=== PATIENT | female | born 1965 | race Caucasian/White ===

== ENCOUNTER 2024-09-05 17:07 | Emergency (ER) | payer MEDICARE, MEDICAID, SELFPAY ==
[2024-09-05 17:21] VITALS: BP 126/82; PULSE 108; RESP 20; TEMP 36.4; O2SAT 98
--- NOTE | 2024-09-05 17:52 | ED_ITS ---
HPI - Eye Problem General Chief complaint: Eye Problems Stated complaint: eye Time Seen by Provider: 09/05/24 17:38 Source: patient Mode of arrival: ambulatory Limitations: no limitations History of Present Illness HPI Narrative: This is a 58-year-old female who presents to the ED for chief complaint of right eye irritation for the past 2 days. Reports that she feels she may have gotten something stuck in her high and was trying to get out. She still feels like there is a scratching/foreign body sensation in the right lateral corner of the eye. Denies pain with eye movements. Denies fevers, chills. Related Data Allergies Allergy/AdvReac Type Severity Reaction Status Date / Time No Known Allergies Allergy Verified 09/05/24 17:21 Review of Systems Review of Systems: All systems as dictated in [facility] Family History Family History (Updated 09/05/11 @ 11:20 by DOCTOR UNKNOWN) Other Cerebrovascular accident Family history of arthritis Family history of malignant neoplasm Hypertension Social History Social History Smoking status: Smoker, status unknown Alcohol intake: never Exam Narrative: GENERAL: Well-appearing, well-nourished, and in no acute distress. HEAD: Normocephalic, atraumatic. EYES: Right eye conjunctiva injected. Mild erythema and edema surrounding the eye. Wood's lamp exam reveals corneal abrasion in the 7 o'clock position. Immediate relief with tetracaine PERRLA and EOMI. No pain with EOMs. ENT: Nares clear, no rhinorrhea or epistaxis. Mucous membranes moist. Oropharynx without tonsillar hypertrophy exudate or other lesions. NECK: Supple. No adenopathy or masses. CHEST: No respiratory distress. Clear to auscultation. No wheezes rales or rhonchi HEART: Regular rate and rhythm. No murmur heard. Normal peripheral pulses. ABDOMEN: Soft, nontender, nondistended, normal active bowel sounds. MSK: Normal range of motion. No edema. SKIN: Warm, dry, no rash. NEURO: Alert and oriented x4. No focal deficits. PSYCH: Normal mood and affect. Course Vital Signs Vital signs: Vital Signs Temperature 97.5 F L 09/05/24 17:21 Pulse Rate 108 H 09/05/24 17:21 Respiratory Rate 20 09/05/24 17:21 Blood Pressure 126/82 09/05/24 17:21 Pulse Oximetry 98 09/05/24 17:21 Oxygen Delivery Room Air 09/05/24 17:21 Temperature 97.5 F L 09/05/24 17:21 Pulse Rate 108 H 09/05/24 17:21 Respiratory Rate 20 09/05/24 17:21 Blood Pressure 126/82 09/05/24 17:21 Pulse Oximetry 98 09/05/24 17:21 Oxygen Delivery Room Air 09/05/24 17:21 MDM - Eye Problem MDM Narrative Medical decision making narrative: 58-year-old female coming in with corneal abrasion. Vitals are normal. Eye exam does show erythema surrounding the eye. She has obvious corneal abrasion to the right eye. No foreign bodies Rx for ofloxacin drops given. Pt will be discharged in stable condition. Return precautions given and supportive measures discussed. Pt is understanding and agreeable with plan for discharge and follow-up with PCP. Discharge Plan Discharge Clinical Impression: Corneal abrasion Patient Disposition: Home, Self-Care Condition: Stable Instructions: Antibiotic Form Additional Instructions: Exam today did show scratch on the cornea. Please take antibiotic drops as prescribed. Follow-up with [facility] this week. If you have any new or worsening symptoms please return to the ER for further evaluation. Patient Language: [place] Islander Prescriptions: New ofloxacin 0.3 % drops See Rx Instructions .ROUTE .COMPLEX Qty: 5 0RF Rx Instructions: put 1-2 drps into affected eye(s) every 2-4 h x 2 days, then 1-2 drps 4 times/day days 3-7 Follow-up/Referrals: PHYSICIAN NOT ON STAFF,NONSTAFF [Primary Care Provider] - Time of Disposition: 18:04
--- OUTSIDE RECORDS SUMMARY | 2024-09-09 10:09 | XMS_ITS | Encounter Summary ---
Author Organization [facility] Address [address] [place] [address] Care Team Providers Care Haulage Boss Name Role Phone Unavailable Primary Care Provider Unavailabl e Reason for Visit * Reason Comments Pain Urinary 1 month Encounter Details Date Type Department Care Team (Late st Contact Info) Description 10/03/2016 5:40 PM CULINARY INSTRUCTOR Office Visit [facility] [address] [place] [id number] Provider, Andrew Exp Nameoki Acute cystitis with hematuria (Primary Dx); Nausea without vomiting Social History Tobacco Use Types Packs/Day Years Used Date Smoking Tobacco: Never Assessed Sex and Gender Information Value Date Recorded Sex Assigned at Not on file Gender Identity Not on file Sexual Orientation Not on file documented as of this encounter Last Filed Vital Signs Vital Sign Reading Time Taken Comments Blood Pressure 136/80 10/03/2016 5:55 PM CULINARY INSTRUCTOR Pulse 99 10/03/2016 5:55 PM CULINARY INSTRUCTOR Temperature 38.6 ??C (101.4 ??F) 10/03/2016 5:[address] Respiratory Rate 18 10/03/2016 5:55 PM CULINARY INSTRUCTOR Oxygen Saturation - - Inhaled Oxygen Concentration - - Weight 68 kg (150 lb) 10/03/2016 5:55 PM CULINARY INSTRUCTOR Height 161.3 cm (5' 3.5 ) 10/03/2016 5:55 PM CULINARY INSTRUCTOR Body Mass Index 26.15 10/03/2016 5:55 PM CULINARY INSTRUCTOR documented in this encounter Patient Instructions * Patient Instructions* Sudha Huber APRN-DOCTOR OF PHARMACY - 10/03/2016 6:11 PM CULINARY INSTRUCTOR Images from the original note were not included. Increase water intake, decrease caffeine. May drink cranberry juice to help with symptoms. May use OTC Azo for bladder spasms as needed (this may change the color of your urine). Tylenol or motrin as needed Proper hygiene No bubble baths If no improvement in 48-72 hours follow up with PCP or return to clinic Urinary Tract Infection in Women WHAT YOU NEED TO KNOW: A urinary tract infection (UTI) is caused by bacteria that get inside your urinary tract. Your urinary tract includes your kidneys, ureters, bladder, and urethra. Urine is made in your kidneys, and it flows from the ureters to the bladder. Urine leaves the bladder through the urethra. A UTI is morecommon in your lower urinary tract, which includes your bladder and urethra. DISCHARGE INSTRUCTIONS: Seek care immediately if: ?? You are urinating very little or not at all. ?? You are vomiting. ?? You have a high fever with shaking chills. ?? You have side or back pain that gets worse. Contact your healthcare provider if: ?? You have a fever. ?? You have white or yellow discharge from your vagina. ?? You do not feel better after 2 days of taking antibiotics. ?? You have questions or concerns about your condition or care. Medicines: ?? Medicines help treat the bacterial infection or decrease pain and burning when you urinate. You may also need medicines to decrease the urge to urinate often. ?? Take your medicine as directed. Call your healthcare provider if you think your medicine is not helping or if you have side effects. Tell him if you are allergic to any medicine. Keep a list of the medicines, vitamins, and herbs you take. Include the amounts, and when and why you take them. Bring the list or the pill bottles to follow-up visits. Carry your medicine list with you in case of an emergency. Follow up with your healthcare provider as directed: Write down your questions so you remember to ask them during your visits. Self-care: ?? Urinate when you feel the urge. Do not hold your urine. Urinate as soon as you feel you have to. ?? Drink liquids as directed. Ask how much liquid to drink each day and which liquids are best for you. You may need to drink more liquids than usual to help flush out the bacteria. Do not drink alcohol, caffeine, and citrus juices. These can irritate your bladder and increase your symptoms. ?? Apply heat on your abdomen for 20 to 30 minutes every 2 hours for as many days as directed. Heathelps decrease discomfort and pressure in your bladder. ?? 2016 [employer]. Information is for End User's use only and may not be sold, redistributed or otherwise used for commercial purposes. All illustrations and images included in CareNotes?? are the copyrighted property of [employer]. or [employer] The above information is an dietary aide cook only. It is not intended as medical advice for individual conditions or treatments. Talk to your doctor, nurse or pharmacist before following any medical regimen to see if it is safe and effective for you. NARY INSTRUCTOR documented in this encounter Progress Notes * Sudha Huber APRN-CNP - 10/03/2016 5:56 PM CST [facility] Chief Complaint Patient presents with ??? Pain Urinary x 1 week SUBJECTIVE: General The history is provided by the patient. This is a new problem. The current episode started more than 1 week ago. The problem occurs constantly. The problem has been gradually worsening. Body Location: urinating.Pertinent negatives include no shortness of breath. Treatments tried: cranberry pill, cystic The treatment provided no relief. Patient has been dealing with urinary symptoms for 1 month saw PCP 09/03/16 was treated for UTI with Keflex x 5 days no help Past Medical History Diagnosis Date ??? Breast cancer 08/2016 right (no treatement as of 10/03/16) No current outpatient prescriptions on file prior to visit. No current facility-administered medications on file prior to visit. No past surgical history on file. History Social History ??? Marital status: Single Spouse name: N/A ??? Number of children: N/A ??? Years of education: N/A Occupational History ??? Not on file. Social History Main Topics ??? Smoking status: Not on file ??? Smokeless tobacco: Not on file ??? Alcohol use: Not on file ??? Drug use: Not on file ??? Sexual activity: Not on file Other Topics Concern ??? Not on file Social History Narrative ??? No narrative on file No family history on file. No current outpatient prescriptions on file. No current facility-administered medications for this visit. Allergies not on file REVIEW OF SYSTEMS: Review of Systems Constitutional: Positive for chills and fever. Aches Respiratory: Negative for cough and shortness of breath. Gastrointestinal: Positive for nausea. Genitourinary: Positive for dysuria, flank pain, frequency, hematuria and urgency. Suprapubic pressure OBJECTIVE: General appearance: alert, well appearing, and in no distress. BP 136/80 Pulse 99 Temp 101.4 ??F (Oral) Resp 18 Wt 68 kg (150 lb) BMI 26.15 kg/m2 Physical Exam Constitutional: She is oriented to person, place, and time and well-developed, well-nourished, and in no distress. HENT: Head: Normocephalic and atraumatic. Cardiovascular: Normal rate and regular rhythm. Pulmonary/Chest: Effort normal and breath sounds normal. Abdominal: Soft. Bowel sounds are normal. Genitourinary: Genitourinary Comments: Suprapubic tenderness, left flank tendnerness Neurological: She is alert and oriented to person, place, and time. Vitals reviewed. ASSESSMENT: No results found for this visit on 10/03/16. No diagnosis found. PLAN: Increase water intake, decrease caffeine. May drink cranberry juice to help with symptoms. May use OTC Azo for bladder spasms as needed (this may change the color of your urine). Tylenol or motrin as needed Proper hygiene No bubble baths If no improvement in 48-72 hours follow up with PCP or return to clinic NARY INSTRUCTOR documented in this encounter Plan of Treatment Not on file documented as of this encounter Procedures Procedure Name Priority Date/Time Associated Diagnosis Comments URINALYSIS AUTO - POINT OF CARE (AMB) STL Routine 10/03/2016 6:09 PM CULINARY INSTRUCTOR Acute cystitis with hematuria CULTURE URINE Routine 10/03/2016 6:08 PM CULINARY INSTRUCTOR Acute cystitis with hematuria documented in this encounter Results * (ABNORMAL) URINALYSIS AUTO - POINT OF CARE (AMB) STL (10/03/2016 6:09 PM CULINARY INSTRUCTOR) Clarity UA POCT clear Color UA POCT yellow Leukocyte UA 125 Negative Nitrite UA POCT neg Negative Urobilinogen UA 0.2 0.1 - 1.0 Protein UA POCT 30 Negative pH UA 6.0 5.0 - 8.0 pH units Blood UA 3+ Negative Specific [place] UA POCT 1.020 1.002 - 1.030 Ketone UA neg Negative Bilirubin UA POCT neg Negative Glucose UA neg Negative Expiration Date 03/23/2018 Lot # [id number] QC Verified Yes Yes URINE / Unknown 10/03/2016 6 :09 PM CULINARY INSTRUCTOR Sudha Fan Huber FLOOR CLEANER-DOCTOR OF PHARMACY LAB - POINT O F CARE ORDERABLES * (ABNORMAL) CULTURE URINE (10/03/2016 6:08 PM CULINARY INSTRUCTOR) [facility] [address] Culture (A) QUEST Comment: ??CULTURE, URINE, ROUTINE ?MICRO NUMBER: ?[id number] ??TEST STATUS: ? FINAL ??SPECIMEN SOURCE: ?? URINE, CLEAN CATCH ??SPECIMEN QUALITY: ??ADEQUATE ??RESULT: ?Greater than 100,000 CFU/mL of Escherichia coli ?E.coli ?INT ?? HAJA ?? AMOX/CLAVULANATE ? S ? <=2 ?? AMPICILLIN ? S ? <=2 ?? AMP/SULBACTAM ?S ? <=2 ?? CEFAZOLIN ?NR ?<=4 1 ?? CEFEPIME ? S ? <=1 ?? CEFTRIAXONE ?S ? <=1 ?? CIPROFLOXACIN ?S ? <=0.25 ?? ERTAPENEM ?S ? <=0.5 ?? GENTAMICIN ? S ? <=1 ?? IMIPENEM ? S ? <=0.25 ?? LEVOFLOXACIN ? S ? <=0.12 ?? NITROFURANTOIN ? S ? <=16 ?? PIP/TAZOBACTAM ? S ? <=4 ?? TOBRAMYCIN ? S ? <=1 ?? TRIMETHOPRIM/SULFA ? S ? <=20 S=Susceptible ??I=Intermediate ??R=Resistant ??* = Not Tested NR = Not Reported ??NN = See Therapy Comments THERAPY COMMENTS ?Note 1: ?ORAL therapy: A cefazolin HAJA of < 32 predicts ?susceptibility to the oral agents cefaclor, ?cefdinir, cefpodoxime, cefprozil, cefuroxime, ?cephalexin, and loracarbef when used for therapy ?of uncomplicated UTIs due to E. coli, ?K. pneumoniae, and P. mirabilis. ?PARENTERAL therapy: A cefazolin HAJA of > 8 ?indicates resistance to parenteral cefazolin. ?An alternate test method must be performed to ?to confirm susceptibility to parenteral cefazolin. Test Performed at: [facility] [address] [place], [place] ??[id number] NINI MELENDREZ MD Urine URINE SPECIMEN OBTAINED BY CLEAN CATCH PROCEDURE / Unknown 10/03/2016 6:08 PM CULINARY INSTRUCTOR 10/04/2016 12:18 AM CULINARY INSTRUCTOR Sudha Huber APRN-DOCTOR OF PHARMACY LAB - MICROBI OLOGY ORDERABLES Performing Organization Address City/State/[facility] Co de Phone Number [facility] [address] [place] [address] documented in this encounter Visit Diagnoses Diagnosis Acute cystitis with hematuria- Primary Acute cystitis Nausea without vomiting documented in this encounter
--- OUTSIDE RECORDS SUMMARY | 2024-09-09 10:09 | XMS_ITS | Patient Health Summary ---
Author Organization [facility] [employer] Address [address] [place] [address] Care Team Providers Care Assistant Manager Retail Name Role Phone Unavailable Primary Care Provider Unavailabl e Note from [facility],non-owned Affiliates and Associated Physician Practices is amultiple site organization consisting of ambulatory clinics and hospital sitesin [place], [place], [place] and [place]. This disclosure is being madepursuant to the Care Everywhere program and may not contain all information available regarding this patient. Last updated 18.[facility] [employer] Allergies No known active allergies Medications * Be aware that medications may not be up to date on this document. Alwaysverify current medications with the patient. * Ondansetron HCl (ZOFRAN PO) * Dicyclomine HCl (BENTYL PO) * SUMAtriptan Succinate (IMITREX PO) * OMEPRAZOLE PO * Topiramate (TOPAMAX PO) * DiazePAM (VALIUM PO) * Alendronate Sodium (FOSAMAX PO) * ondansetron (ZOFRAN) 4 MG tablet(Started 10/03/2016) Take 1 Tab by mouth every 6 hours as needed for Nausea/Vomiting Social History Tobacco Use Types Packs/Day Years Used Date Smoking Tobacco: Never Assessed Sex and Gender Information Value Date Recorded Sex Assigned at Not on file Gender Identity Not on file Sexual Orientation Not on file Last Filed Vital Signs Vital Sign Reading Time Taken Comments Blood Pressure 136/80 10/03/2016 5:55 PM STOCK RANCH SUPERVISOR Pulse 99 10/03/2016 5:55 PM STOCK RANCH SUPERVISOR Temperature 38.6 ??C (101.4 ??F) 10/03/2016 5:[address] Respiratory Rate 18 10/03/2016 5:55 PM STOCK RANCH SUPERVISOR Oxygen Saturation - - Inhaled Oxygen Concentration - - Weight 68 kg (150 lb) 10/03/2016 5:55 PM STOCK RANCH SUPERVISOR Height 161.3 cm (5' 3.5 ) 10/03/2016 5:55 PM STOCK RANCH SUPERVISOR Body Mass Index 26.15 10/03/2016 5:55 PM STOCK RANCH SUPERVISOR Procedures * URINALYSIS AUTO - POINT OF CARE (AMB) STL(Performed 10/03/2016) Performed for Acute cystitis with hematuria * CULTURE URINE(Performed 10/03/2016) Performed for Acute cystitis with hematuria Results * (ABNORMAL) URINALYSIS AUTO - POINT OF CARE (AMB) STL (10/03/2016 6:09 PM STOCK RANCH SUPERVISOR) Clarity UA POCT clear Color UA POCT yellow Leukocyte UA 125 Negative Nitrite UA POCT neg Negative Urobilinogen UA 0.2 0.1 - 1.0 Protein UA POCT 30 Negative pH UA 6.0 5.0 - 8.0 pH units Blood UA 3+ Negative Specific [place] UA POCT 1.020 1.002 - 1.030 Ketone UA neg Negative Bilirubin UA POCT neg Negative Glucose UA neg Negative Expiration Date 03/23/2018 Lot # [id number] QC Verified Yes Yes URINE / Unknown 10/03/2016 6 :09 PM STOCK RANCH SUPERVISOR Sudha Huber APRN-BAKERY DEMONSTRATOR LAB - POINT O F CARE ORDERABLES * (ABNORMAL) CULTURE URINE (10/03/2016 6:08 PM STOCK RANCH SUPERVISOR) Culture (A) [facility] Comment: ??CULTURE, URINE, ROUTINE ?MICRO NUMBER: ?[id number] ??TEST STATUS: ? FINAL ??SPECIMEN SOURCE: ?? [...] susceptibility to parenteral cefazolin. Test Performed at: [facility] [employer] ??[id number] NINI MELENDREZ MD Urine URINE SPECIMEN OBTAINED BY CLEAN CATCH PROCEDURE / Unknown 10/03/2016 6:08 PM STOCK RANCH SUPERVISOR 10/04/2016 12:18 AM STOCK RANCH SUPERVISOR Sudha Huber APRN-BAKERY DEMONSTRATOR LAB - MICROBI OLOGY ORDERABLES [facility] [address] [place] [id number]
--- OUTSIDE RECORDS SUMMARY | 2024-09-09 10:09 | XMS_ITS | Referral Summary ---
Author Organization [facility] [employer] Address [address] [place] [address] Care Team Providers Care Economics Lecturer Name Role Phone Unavailable Primary Care Provider Unavailabl e Source Comments [facility] [employer],non-owned Affiliates and Associated Physician Practices is amultiple site organization consisting of ambulatory clinics and hospital sitesin [place], [place], [place] and [place]. This disclosure is being madepursuant to the Care Everywhere program and may not contain all information available regarding this patient. Last updated 18.[facility] Allergies No known active allergies Medications * Be aware that medications may not be up to date on this document. Alwaysverify current medications with the patient. Medication Sig Dispensed Refills Start Date End Date Status Ondansetron HCl (ZOFRAN PO) Active Dicyclomine HCl (BENTYL PO) Active SUMAtriptan Succinate (IMITREX PO) Active OMEPRAZOLE PO Active Topiramate (TOPAMAX PO) Active DiazePAM (VALIUM PO) Acti ve Alendronate Sodium (FOSAMAX PO) Active ondansetron (ZOFRAN) 4 MG tabletIndications:Naus ea without vomiting Take 1 Tab by mouth every 6 hours as needed for Nausea/Vomiting 30 Tab 10/03/2016 Active Social History Tobacco Use Types Packs/Day Years Used Date Smoking Tobacco: Never Assessed Sex and Gender Information Value Date Recorded Sex Assigned at Not on file Gender Identity Not on file Sexual Orientation Not on file Last Filed Vital Signs Vital Sign Reading Time Taken Comments Blood Pressure 136/80 10/03/2016 5:55 PM NON DESTRUCTIVE TESTING TECHNICIAN Pulse 99 10/03/2016 5:55 PM NON DESTRUCTIVE TESTING TECHNICIAN Temperature 38.6 ??C (101.4 ??F) 10/03/2016 5:[address] Respiratory Rate 18 10/03/2016 5:55 PM NON DESTRUCTIVE TESTING TECHNICIAN Oxygen Saturation - - Inhaled Oxygen Concentration - - Weight 68 kg (150 lb) 10/03/2016 5:55 PM NON DESTRUCTIVE TESTING TECHNICIAN Height 161.3 cm (5' 3.5 ) 10/03/2016 5:55 PM NON DESTRUCTIVE TESTING TECHNICIAN Body Mass Index 26.15 10/03/2016 5:55 PM NON DESTRUCTIVE TESTING TECHNICIAN Plan of Treatment Not on file
--- OUTSIDE RECORDS SUMMARY | 2024-09-09 10:09 | XMS_ITS | Continuity of Care Document ---
Author Organization [facility] Address [address] [place] [address] Phone Care Team Providers Care Expanded Duty Dental Assistant Name Role Phone Fuentes OD, Aristeo Unavailable Unavailable Advance Directives Directive Yes / No Effective Date File Name No Information Encounters Encounter Description Practice Location Reason(s) For Visit Diagnoses Date Provider Providers Copied on Encounter [facility], [address], [place], [place], [id number], [place] tel:[phone] [facility] [place] No Information Nov-0 4-200 5 Fuentes OD Aristeo. [address] [place] , [address], [place], [address], [place]. tel:[phone] Family History Family Member Type Diagnosis Age At Onset No Information Payers Payer name Insurance type Covered constitution party ID Authoriza tion(s) Medicare [facility] [id number] Medicaid [facility] [id number] Social History Type Description Quantity Date Captured Comments Sex Female Smoking Status No Information Chief Complaint And Reason For Visit No Information Reason For Referral Reason For Referral No Information History Of Present Illness Encounter Date Complaint History Of Prese nt Illness No Information Functional Status Date Functional Assessmen t No Information Instructions Date Instruction Additional Infor mation No Information Assessments Type Assessment Date No Information Patient Care Teams Name Effective Dates (start - stop) Status Members No Information
--- OUTSIDE RECORDS SUMMARY | 2024-09-09 10:09 | XMS_ITS | CONTINUITY OF CARE DOCUMENT ---
Author Name claudia taylor Address Unknown Organization [facility] Address [address] [place] [address] Phone [phone] Care Team Providers Care Supervisor Parking Lot Name Role Phone Kavin Schumacher MD Unavailable [phone] Kavin Schumacher MD Unavailable [phone] INSURANCE PROVIDERS Payer name Policy type / Coverage type [place] red green party ID [employer] AND FAMILY SERVICES Medicaid 1 [id number] [id number]
--- OUTSIDE RECORDS SUMMARY | 2024-09-09 10:09 | XMS_ITS | Clinical Summary ---
Author Organization [facility] Address [address] [place] [address]. [place], [place] [id number] [place] [address] Care Team Providers Care X Ray Tech Name Role Phone Unavailable Primary Care Provider Unavailabl e Social History Tobacco Use Types Packs/Day Years Used Date Smoking Tobacco: Never Assessed Comments Unknown Sex and Gender Information Value Date Recorded Sex Assigned at Not on file Legal Sex Female 7:31 PM CDT Gender Identity Not on file Sexual Orientation Not on file Plan of Treatment Health Maintenance Due Date Last Done Comments Cervical Cancer Screening Pa p Smear (Age 30 to 64) Every 3 Years 1966 Colorectal Cancer Screening Colonoscopy (10 Years) 1966 Annual Physical 1969 Hepatitis C 1984 DTaP, Tdap and Td Vaccines ( 1 - Tdap) 1985 Hepatitis B Vaccines (1 of 3 - 19+ 3-dose series) 1985 Cervical Cancer Screening Pa p with HPV Testing (Age 30 to 64) Every 5 Years 1996 Cervical Cancer Screening with HPV 1996 Mammogram Screening 2006 Zoster Vaccines (1 of 2) 2016 COVID-19 Vaccine (2023-2 5 season) 2024 Influenza Adult (#1) 2024 Meningococcal Vaccine Aged Out No lizandro yanira eligible based on patient's age to complete this topic Pneumococcal Vaccine: Pediat rics (0 to 5 Years) and At-Risk Patients (6 to 64 Years) Aged Out No longer eligible b ased on patient's age to complete this topic RSV Immunizations Under 20 Months Aged Out No longer eligible based on patient's age to complete this topic
--- OUTSIDE RECORDS SUMMARY | 2024-09-09 10:09 | XMS_ITS | Clinical Summary ---
Author Organization [facility] Address [address] [place] [address] Care Team Providers Care Sand Mixer Machine Name Role Phone Unavailable Primary Care Provider Unavailabl e Source Comments [facility],non-owned Affiliates and Associated Physician Practices is amultiple site organization consisting of ambulatory clinics and hospital sitesin [place], [place], [place] and [place]. This disclosure is being madepursuant to the Care Everywhere program and may not contain all information available regarding this patient. Last updated 18.[facility] Allergies No known active allergies Medications * [...] Comments Blood Pressure 136/80 10/03/2016 5:55 PM FIRE INSPECTOR Pulse 99 10/03/2016 5:55 PM FIRE INSPECTOR Temperature 38.6 ??C (101.4 ??F) 10/03/2016 5:[address] Respiratory Rate 18 10/03/2016 5:55 PM FIRE INSPECTOR Oxygen Saturation - - Inhaled Oxygen Concentration - - Weight 68 kg (150 lb) 10/03/2016 5:55 PM FIRE INSPECTOR Height 161.3 cm (5' 3.5 ) 10/03/2016 5:55 PM FIRE INSPECTOR Body Mass Index 26.15 10/03/2016 5:55 PM FIRE INSPECTOR Plan of Treatment Health Maintenance Due Date Last Done Comments COLOGUARD (AGES 45-75) - COL ON CA SCREENING 1966 COLON MONITORING 1966 COLONOSCOPY - COLON CA SCREENING 1966 CT COLONOGRAPHY - COLON CA SCREENING 1966 Colorectal Cancer Screening 1966 FIT - COLON CA SCREENING 1966 FLEX SIG - COLON CA SCREENING 1966 LIPID TESTING 1966 MAMMOGRAM 1966 MEDICARE AWV ? 12 MONTHS 1966 PAP SMEAR 1966 HIV SCREENING 1981 HEPATITIS C SCREENING 09/16/1984 DTAP/TDAP/TD VACCINES (1 - Tdap) 1985 HEPATITIS B VACCINE (1 of 3 - 19+ 3-dose series) 1985 ZOSTER VACCINE (1 of 2) 2016 DEPRESSION SCREENING 09/24/2023 COVID-19 VACCINE (1 - 2023-2 5 season) 2024 INFLUENZA VACCINE (#1) 2024 HIB VACCINE Aged Out No longer eligi ble based on patient's age to complete this topic HPV VACCINE Aged Out No longer eligi ble based on patient's age to complete this topic MENINGOCOCCAL VACCINE Aged Out No lizandro yanira eligible based on patient's age to complete this topic PNEUMOCOCCAL VACCINE Aged Out No long er eligible based on patient's age to complete this topic
--- OUTSIDE RECORDS SUMMARY | 2024-09-09 10:09 | XMS_ITS | Continuity of Care Document ---
Author Organization [facility] Address [address] [place] [address] [place] [address] Phone Care Team Providers Care Donor Floor Technician Name Role Phone Maximo Andre MD Unavailable Unavailable Allergies, Adverse Reactions, Alerts Substance Reaction Status Criticality No Known Allergies Active No Inform ation Medications Medication Instructions Dosage Effective Dates (start - stop) Status Comments omeprazole 20 mg capsule,delayed release take 1 capsule (20MG) by oral route every day before a meal - Active Topamax 50 mg tablet take 1 tablet by oral route 2 times every day 50 MG - Active Zantac 150 mg tablet take 1 tablet (150MG) by oral route 2 times every day - Active Ritalin 5 mg tablet take 1 tablet by oral route 2 times every day 5 MG - Active Valium 10 mg tablet take 1 tablet (10MG) by oral route 3 times every day 10 MG - Active avoid driving or operate machines Penasco 10 mg-325 mg tablet take 1 by Oral route 4 times every day as needed 1 - Active avoid driving or operate amchines Vistaril 50 mg capsule take 1 capsule by oral route every bedtime 50 MG - Active alendronate 35 mg tablet take 1 tablet (35MG) by oral route every week in the morning, at least 30 min before first food, beverage, or medication of day 35 MG - Active Paxil 10 mg tablet take 1 tablet by oral route every day 10 MG - Active Procedures Procedure Date OFFICE/OUTPATIENT VISIT, EST OFFICE/OUTPATIENT VISIT, EST OFFICE/OUTPATIENT VISIT, EST PREV VISIT, EST, AGE 40-64 OFFICE/OUTPATIENT VISIT, EST OFFICE/OUTPATIENT VISIT, EST OFFICE/OUTPATIENT VISIT, EST OFFICE/OUTPATIENT VISIT, EST OFFICE/OUTPATIENT VISIT, EST OFFICE/OUTPATIENT VISIT, EST OFFICE/OUTPATIENT VISIT, EST OFFICE/OUTPATIENT VISIT, EST OFFICE/OUTPATIENT VISIT, EST OFFICE/OUTPATIENT VISIT, EST OFFICE/OUTPATIENT VISIT, EST OFFICE/OUTPATIENT VISIT, EST OFFICE/OUTPATIENT VISIT, EST OFFICE/OUTPATIENT VISIT, EST OFFICE/OUTPATIENT VISIT, EST OFFICE/OUTPATIENT VISIT, EST OFFICE/OUTPATIENT VISIT, EST OFFICE/OUTPATIENT VISIT, EST OFFICE/OUTPATIENT VISIT, EST OFFICE/OUTPATIENT VISIT, EST OFFICE/OUTPATIENT VISIT, EST OFFICE/OUTPATIENT VISIT, EST OFFICE/OUTPATIENT VISIT, EST OFFICE/OUTPATIENT VISIT, EST OFFICE/OUTPATIENT VISIT, EST OFFICE/OUTPATIENT VISIT, EST OFFICE/OUTPATIENT VISIT, EST OFFICE/OUTPATIENT VISIT, EST OFFICE/OUTPATIENT VISIT, EST OFFICE/OUTPATIENT VISIT, EST OFFICE/OUTPATIENT VISIT, EST OFFICE/OUTPATIENT VISIT, EST OFFICE/OUTPATIENT VISIT, EST OFFICE/OUTPATIENT VISIT, EST OFFICE/OUTPATIENT VISIT, EST OFFICE/OUTPATIENT VISIT, EST OFFICE/OUTPATIENT VISIT, EST OFFICE/OUTPATIENT VISIT, EST OFFICE/OUTPATIENT VISIT, EST OFFICE/OUTPATIENT VISIT, EST OFFICE/OUTPATIENT VISIT, EST OFFICE/OUTPATIENT VISIT, EST Advance Directives Directive Yes / No Effective Date File Name No Information Encounters Encounter Description Practice Location Reason(s) For Visit Diagnoses Date Provider Providers Copied on Encounter OFFICE/OUTPA TIENT VISIT, [facility], [address], [place], [address], tel:[phone] [facility] chornic pain (chief complaint)anxi ety1 (chief complaint)GERD 1 (chief complaint)knee pain1 (chief complaint) Chronic pain syndromePain in right kneeGeneralized Anxiety DisorderGERD without esophagitis 6 Thai Marsh. [address], [address], [place], [address]. tel:[phone] Referring Provider: Lyle Lmab [facility] [address], [place], [address]. tel:[phone] OFFICE/OUTPA TIENT VISIT, [facility], [address], [place], [address], [place] tel:[phone] [facility] chronic pain (chief complaint)oste openia1 (chief complaint)indio sst nodule (chief complaint)knee pain (chief complaint)knee pain1 (chief complaint) Oth disrd of bone density and structure, multiple sitesPain in right kneeInconclusiv e mammogramChroni c pain syndrome 0 6 Thai Marsh. [address], [address], [place], [address]. tel:[phone] Referring Provider: Lyle Lamb [facility] [address], [place], [address]. tel:[phone] OFFICE/OUTPA TIENT VISIT, [facility], [address], [place], [address], [place] tel:[phone] [facility] chronic pain (chief complaint)anxi ety1 (chief complaint)ADD (chief complaint)naus ea1 (chief complaint) Chronic pain syndromeGeneral ized Anxiety DisorderNauseaA ttention deficit 6 Thai Marsh. [address], [address], [place], [address]. tel:[phone] Referring Provider: Lyle Lamb [address], [place], [address]. tel:[phone] PREV VISIT, EST, AGE 40-64 [facility], [address], [place], [address], tel:[phone] [facility] PHysical (chief complaint) Encounter for general adult medical exam w abnormal findingsGERD w/ esophagitisChro elizabeth pain syndromeHeadach e May- 6 Thai Marsh. [address], [address], [place], [address]. [phone] Referring Provider: Lyle Lamb [facility] A, [place], [address]. tel:[phone] OFFICE/OUTPA TIENT VISIT, [facility], [address], [place], [address], [place] tel:[phone] [facility] insomnia1 (chief complaint)anxi ety1 (chief complaint)head ache1 (chief complaint)chronometer tester elizabeth pain1 (chief complaint)oste openia1 (chief complaint) CervicalgiaOste oporosisInsomni a, unspecifiedChro elizabeth migraine w/o aura, not intractable, w/o status migrainosus January-0 6 Thai Marsh. [address], [facility] [address], [place], [facility]. [phone] Referring Provider: Lyle Lamb [address], [place], [address]. tel:[phone] OFFICE/OUTPA TIENT VISIT, [facility], [address], [place], [address], [place] tel:[phone] [facility] abd pain (chief complaint)anxi ety1 (chief complaint)chronometer tester elizabeth pain (chief complaint)sick (chief complaint) GastroparesisAc curly upper respiratory infection, unspecifiedChro elizabeth pain syndrome Nov- 6 Thai Marsh. [address], [address], [place], [address]. [phone] Referring Provider: Lyle Lamb [address], [place], [address]. tel:[phone] OFFICE/OUTPA TIENT VISIT, [facility], [address], [place], [address], tel:[phone] [facility] anxiety1 (chief complaint)ADD (chief complaint)sinu s (chief complaint)abd pain1 (chief complaint)oste openia (chief complaint) Allergic rhinitisAnxioly tic dependenceAbdom inal painOsteoporosi s 6 Thai Marsh. [address], [address], [place], [facility]. tel:[phone] Referring Provider: Lyle Lamb [address], [place], [facility]. tel:[phone] OFFICE/OUTPA TIENT VISIT, [facility], [address], [place], [facility], tel:[phone] [facility] abd pain1 (chief complaint)inso mnia1 (chief complaint)Anxi ety1 (chief complaint)ADD1 (chief complaint)head ache1 (chief complaint) Abdominal painInsomnia, unspecifiedChro elizabeth migraine w/o aura, not intractable, w/o status migrainosus 6 Thai Marsh. [address], [address], [place], [facility]. tel:[phone] Referring Provider: Lyle Lamb [address], [place], [address]. tel:[phone] OFFICE/OUTPA TIENT VISIT, [facility], [address], [place], [address], tel:[phone] [facility] anxiety1 (chief complaint)ADD1 (chief complaint)Abd pain1 (chief complaint) Generalized abdominal painIBSGERD without esophagitis 5 Thai Marsh. [address], [address], [place], [facility]. tel:[phone] Referring Provider: Lyle Lamb [address], [place], [address]. tel:[phone] OFFICE/OUTPA TIENT VISIT, [facility], [address], [place], [address], tel:[phone] [facility] GERD1 (chief complaint)Anxi ety1 (chief complaint)head ache1 (chief complaint) Gastroparalysis Chronic migraine w/o aura, not intractable, w/o status migrainosusAbdo akosua painCandidal esophagitis 5 Thai Marsh. [address], [address], [place], [facility]. tel:[phone] Referring Provider: Maximo Andre, [address], [place], [facility]. tel:[phone] OFFICE/OUTPA TIENT VISIT, [facility], [address], [place], [facility], [place] tel:[phone] [facility] ADD (chief complaint)anxi ety (chief complaint)GERD (chief complaint) Esophageal refluxUnspecifi ed essential hypertensionIns omnia, unspecifiedOthe r disorders of bone and cartilage 5 Thai Marsh. [address], [address], [place], [facility]. tel:[phone] Referring Provider: Maximo Andre, [address], [place], [facility]. tel:[phone] OFFICE/OUTPA TIENT VISIT, [facility], [address], [place], [address], [place] tel:[phone] [facility] HTN (chief complaint)inso mnia (chief complaint)ADD (chief complaint)slee p apnea (chief complaint) InsomniaUnspeci fied sleep apneaUnspecifie d essential hypertension 5 Thai Marsh. [address], [address], [place], [address]. tel:[phone] Referring Provider: Maximo Andre, [address], [place], [facility]. tel:[phone] OFFICE/OUTPA TIENT VISIT, [facility], [address], [place], [address], [place] tel:[phone] [facility] Depression (chief complaint)naue a (chief complaint)ADD (chief complaint) Nausea and vomitingEsophag eal refluxHeadacheS creening mammogram 5 Thai Marsh. [address] [facility] [address], [place], [facility]. tel:[phone] Referring Provider: Lyle Lamb [facility] [address], [place], [facility]. tel:[phone] OFFICE/OUTPA TIENT VISIT, [facility], [address] [place], [facility], tel:[phone] [facility] anxiety (chief complaint)GERD (chief complaint)ches t pain (chief complaint)slee p apnea (chief complaint) Unspecified essential hypertensionUns pecified sleep apneaGERD - Gastro-esophage al reflux diseaseOther chronic pain 5 Thai Hassan [address], [place], [facility]. tel:[phone] [facility]: [facility] [place], [facility]. tel:[phone] OFFICE/OUTPA TIENT VISIT, [facility], [address] [place], [facility], tel:[phone] [facility] chest pain (chief complaint)head ache (chief complaint)inso mnia (chief complaint)anxi ety (chief complaint)seas onal allergy (chief complaint) Chest Pain, UnspecifiedHead acheAllergic rhinitis, cause unspecifiedInso mnia, Other 5 Thai Marsh. [address], [address], [place], [facility]. tel:[phone] Referring Provider: Lyle Lamb [address] [facility] [address], [place], [facility]. tel:[phone] OFFICE/OUTPA TIENT VISIT, [facility], [address] [place], [address], [place] tel:[phone] [facility] chest pain (chief complaint)head ache (chief complaint)inso mnia (chief complaint)anxi ety (chief complaint) Chest Pain, UnspecifiedHead acheInsomnia, OtherDisorder of bone and cartilage, unspecified Dec-0 5 Thai Marsh. [address], [place], [address]. tel:[phone] Referring Provider: yLle Lamb [facility] [address], [place], [facility]. tel:[phone] OFFICE/OUTPA TIENT VISIT, [facility], [address], [place], [address], tel:[phone] [facility] sleep apnea (chief complaint)anxi ety (chief complaint)ches t pain (chief complaint)inso mnia (chief complaint) Chest Pain, UnspecifiedSlee p ApneaHeadacheIn somnia, Other Nov- 5 Thai Hassan [address], [place], [address]. tel:[phone] Referring Provider: Lyle Lamb [facility] [address], [place], [facility]. tel:[phone] OFFICE/OUTPA TIENT VISIT, [facility], [address], [place], [address], tel:[phone] [facility] sinus (chief complaint)anxi ety (chief complaint)slee p apnea (chief complaint) Other acute sinusitisSleep ApneaSedative, hypnotic or anxiolytic dependence, unspecifiedPers onal history of noncompliance with medical treatment, presenting hazards to health 5 Thai Hassan [address] [facility] [address], [place], [facility]. tel:[phone] Referring Provider: Lyle Lamb [facility] A, [place], [address]. tel:[phone] OFFICE/OUTPA TIENT VISIT, [facility], [address] [place], [address], [place] tel:[phone] [facility] insomnia (chief complaint)head ache (chief complaint)anxi ety (chief complaint)GERD (chief complaint) Insomnia, OtherHeadacheGE RDDepression 4 Thai Hassan [address], [address], [place], [address]. tel:[phone] Referring Provider: Lyle Lamb [address], [place], [facility]. tel:[phone] OFFICE/OUTPA TIENT VISIT, [facility], [address], [place], [facility], tel:[phone] [facility] headache (chief complaint)slee p apnea (chief complaint)anxi ety (chief complaint)inso mnia (chief complaint) HeadacheSleep ApneaDisorder of bone and cartilage, unspecifiedInso mnia, Other 4 Thai Marsh. [address], [address], [place], [facility]. [phone] Referring Provider: Lyle Lamb [address], [place], [facility]. tel:[phone] OFFICE/OUTPA TIENT VISIT, [facility], [address], [place], [facility], tel:[phone] [facility] headache (chief complaint)anxi ety (chief complaint)naus ea (chief complaint) HeadacheNausea aloneSleep Apnea 4 Thai Marsh. [address], [address], [place], [facility]. tel:[phone] Referring Provider: Lyle Lamb [address], [place], [facility]. tel:[phone] OFFICE/OUTPA TIENT VISIT, [facility], [address], [place], [facility], tel:[phone] [facility] insomnia (chief complaint)slee p apnea (chief complaint)anxi ety (chief complaint)GERD (chief complaint) Insomnia, OtherGERDSleep Apnea 4 Thai Marsh. [address], [address], [place], [facility]. [phone] Referring Provider: Lyle Lamb [address], [place], [facility]. tel:[phone] OFFICE/OUTPA TIENT VISIT, [facility], [address], [place], [address], [place] tel:[phone] [facility] GERD (chief complaint)knee pain (chief complaint)slee p apena (chief complaint)anxi ety (chief complaint)inso mnia (chief complaint) GERDPain in joint involving lower legSleep ApneaInsomnia, Other 4 Thai Marsh. [address], [address], [place], [address]. tel:[phone] Referring Provider: Maximo Andre, [address], [place], [address]. tel:[phone] OFFICE/OUTPA TIENT VISIT, [facility], [address], [place], [address], [place] tel:[phone] [facility] knee pain (chief complaint)slee p apnea (chief complaint)anxi ety (chief complaint) Sleep ApneaPain in joint involving lower legDisorder of bone and cartilage, unspecified 4 Thai Marsh. [address], [address], [place], [address]. tel:[phone] Referring Provider: Lyle Lamb [address], [place], [address]. tel:[phone] OFFICE/OUTPA TIENT VISIT, [facility], [address], [place], [address], [place] tel:[phone] [facility] GERD (chief complaint)righ t ear pain (chief complaint)anxi ety (chief complaint) GERDOtalgia, unspecified 4 Thai Marsh. [address], [address], [place], [address]. tel:[phone] Referring Provider: Lyle Lamb [address], [place], [address]. tel:[phone] OFFICE/OUTPA TIENT VISIT, [facility], [address], [place], [address], [place] tel:[phone] [facility] osteopenia (chief complaint)head ache (chief complaint)anxi ety (chief complaint) Disorder of bone and cartilage, unspecifiedHead acheHypertensio n, Unspecified 4 Thai Marsh. [address], [address], [place], [facility]. tel:[phone] Referring Provider: Lyle Lamb [facility] [address], [place], [facility]. tel:[phone] OFFICE/OUTPA TIENT VISIT, [facility], [address], [place], [facility], tel:[phone] [facility] GERD (chief complaint)anxi ety (chief complaint)chronometer tester elizabeth pain (chief complaint) GERDCervicalgia 4 Thai Marsh. [address], [address], [place], [facility]. [phone] Referring Provider: Lyle Lamb [facility] [place]. tel:[phone] OFFICE/OUTPA TIENT VISIT, [facility], [address], [place], [address], [place] tel:[phone] [facility] abdominal pain (chief complaint)anxi ety (chief complaint)oste opnia (chief complaint) Dietary surveillance and counselingAbdom inal PainDisorder of bone and cartilage, unspecifiedGERD 4 Thai Marsh. [address], [address], [place], [facility]. tel:[phone] Referring Provider: Lyle Lamb [address], [place], [facility]. tel:[phone] OFFICE/OUTPA TIENT VISIT, [facility], [address], [place], [address], [place] tel:[phone] [facility] itching (chief complaint)skin infection (chief complaint)chronometer tester elizabeth pain (chief complaint)anxi ety (chief complaint)abdo akosua pain (chief complaint) Dietary surveillance and counselingPain in joint involving lower legCellulitis and abscess of other specified sitesAbdominal PainUnspecified pruritic disorder 4 Thai Marsh. [address], [address], [place], [address]. tel:[phone] Referring Provider: Lyle Lamb [address], [place], [address]. tel:[phone] OFFICE/OUTPA TIENT VISIT, [facility], [address], [place], [address], tel:[phone] [facility] abdominal pain (chief complaint)anxi ety (chief complaint)hand infection (chief complaint)chronometer tester elizabeth pain (chief complaint)itch ing (chief complaint) Dietary surveillance and counselingAbdom inal PainCellulitis and abscess of other specified sitesCHRONIC PAIN NEC 4 Thai Marsh. [address], [address], [place], [facility]. tel:[phone] Referring Provider: Lyle Lamb [facility] [address], [place], [facility]. tel:[phone] OFFICE/OUTPA TIENT VISIT, [facility], [address], [place], [address], [place] tel:[phone] [facility] abdominal pain (chief complaint)anxi ety (chief complaint)itch ing (chief complaint)head ache (chief complaint) Dietary surveillance and counselingAbdom inal PainUnspecified pruritic disorderNausea aloneHeadache 3 Thai Hassan [address], [address], [place], [address]. tel:[phone] Referring Provider: Lyle Lamb [address], [place], [address]. tel:[phone] OFFICE/OUTPA TIENT VISIT, [facility], [address], [place], [address], [place] tel:[phone] [facility] abdominal pain (chief complaint)oste openia (chief complaint)anxi ety (chief complaint)scab ie (chief complaint) Dietary surveillance and counselingAbdom inal PainDisorder of bone and cartilage, unspecifiedScab ies 3 Thai Hassan [address], [address], [place], [address]. tel:[phone] [facility], [address], [place], [address], [place] tel:[phone] [facility] CHRONIC PAIN NEC Sep-3 0-201 3 Thai Marsh. [address], [address], [place], [address]. tel:[phone] OFFICE/OUTPA TIENT VISIT, [facility], [address], [place], [address], [place] tel:[phone] [facility] chornic pain (chief complaint)abdo akosua pain (chief complaint)oste oporosis (chief complaint)anxi ety (chief complaint) Dietary surveillance and counselingPain in joint involving lower legAbdominal PainDisorder of bone and cartilage, unspecified Sep-2 6 3 Thai Marsh. [address], [address], [place], [address]. tel:[phone] Referring Provider: Maximo Andre, [address], [place], [facility]. tel:[phone] OFFICE/OUTPA TIENT VISIT, [facility], [address], [place], [address], [place] tel:[phone] [facility] chronic pain (chief complaint)abdo akosua pain (chief complaint)oste oporosis (chief complaint)skin infection (chief complaint) Dietary surveillance and counselingCHRON IC PAIN NECAbdominal PainDisorder of bone and cartilage, unspecifiedCell ulitis and abscess of other specified sites Apr- 3 Thai Marsh. [address], [address], [place], [address]. tel:[phone] Referring Provider: Maximo Andre, [address], [place], [address]. tel:[phone] OFFICE/OUTPA TIENT VISIT, [facility], [address], [place], [address], [place] tel:[phone] [facility] chronic pain (chief complaint)anxi ety (chief complaint)Naus ea (chief complaint) Pain in joint involving lower legDisorder of bone and cartilage, unspecifiedNaus ea aloneAbdominal Pain 3 Thai Marsh. [address], [address], [place], [address]. tel:[phone] Referring Provider: Lyle Lamb [address], [place], [address]. tel:[phone] OFFICE/OUTPA TIENT VISIT, [facility], [address], [place], [address], tel:[phone] [facility] chronic pain (chief complaint)anxi ety (chief complaint)head ache (chief complaint)oste openia (chief complaint) Dietary surveillance and counselingHeada cheCHRONIC PAIN NECDisorder of bone and cartilage, unspecified 3 Thai Marsh. [address], [address], [place], [address]. tel:[phone] Referring Provider: Lyle Lamb [address], [place], [address]. tel:[phone] OFFICE/OUTPA TIENT VISIT, [facility], [address], [place], [address], [place] tel:[phone] [facility] headache (chief complaint)chronometer tester elizabeth pain (chief complaint)anxi ety (chief complaint) CHRONIC PAIN NECHeadacheNaus ea alone 3 Thai Marsh. [address], [address], [place], [address]. tel:[phone] Referring Provider: Lyle Lamb [address], [place], [address]. tel:[phone] OFFICE/OUTPA TIENT VISIT, [facility], [address], [place], [place], [address], [place] tel:[phone] [facility] chornic pain (chief complaint)anxi ety (chief complaint) Dietary surveillance and counselingHeada cheCHRONIC PAIN NECNausea alone [address], [address], [place], [address]. tel:[phone] Referring Provider: Lyle [address], [place], [address]. tel:[phone] OFFICE/OUTPA TIENT VISIT, [facility], [address], [place], [address], [place] tel:[phone] [facility] Chronic pain (chief complaint)Head ache (chief complaint) HeadacheCHRONIC PAIN NEC Nov-2 [address], [address], [place], [address]. [phone] Referring Provider: Maximo Andre, [address], [place], [address]. tel:[phone] OFFICE/OUTPA TIENT VISIT, [facility], [address], [place], [address], [place] tel:[phone] [facility] headache (chief complaint)nail fungus (chief complaint)chronometer tester elizabeth pain (chief complaint) Dietary surveillance and counselingHeada cheCHRONIC PAIN NECDermatophyto sis of nail Nov-0 [address], [address], [place], [address]. [phone] Referring Provider: Lyle [address], [place], [address]. tel:[phone] OFFICE/OUTPA TIENT VISIT, [facility], [address], [place], [address], [place] tel:[phone] [facility] Knee pain (chief complaint)Head ache (chief complaint)chronometer tester elizabeth pain (chief complaint)anxi ety (chief complaint)ear pain (chief complaint) Dietary surveillance and counselingCHRON IC PAIN NECPain in joint involving lower legHeadache [address], [address], [place], [address]. [phone] Referring Provider: Lyle [address], [place], [address]. tel:[phone] OFFICE/OUTPA TIENT VISIT, [facility], [address], [place], [address], tel:[phone] [facility] chronic pain (chief complaint)nail discoloration (chief complaint)knee pain (chief complaint) Dietary surveillance and counselingDerma tophytosis of nailCHRONIC PAIN NECPain in joint involving lower leg 3 [address], [address], [place], [address]. tel:[phone] Referring Provider: [address], [place], [address]. tel:[phone] OFFICE/OUTPA TIENT VISIT, [facility], [address], [place], [address], [place] tel:[phone] [facility] chronic pain (chief complaint)IBS (chief complaint)toen ail dark (chief complaint) Dietary surveillance and counselingCHRON IC PAIN NECDermatophyto sis of nail [address], [address], [place], [address]. tel:[phone] Referring Provider: L[address], [place], [address]. tel:[phone] OFFICE/OUTPA TIENT VISIT, [facility], [address], [place], [address], [place] tel:[phone] [facility] right shoulder pain (chief complaint)toba account consultant cessation (chief complaint) Dietary surveillance and counselingCHRON IC PAIN NECTobacco AbuseHeadache [address], [address], [place], [address]. tel:[phone] Referring Provider: [address], [place], [address]. tel:[phone] OFFICE/OUTPA TIENT VISIT, [facility], [address], [place], [address], [place] tel:[phone] [facility] shoudler pain (chief complaint)sinu s (chief complaint) Dietary surveillance and counselingPain in joint involving shoulder regionOtalgia, unspecifiedIrri table ColonOther chronic sinusitisTobacc o Abuse [address], [place], [address]. tel:[phone] Referring Provider: Maximo Andre, [address], [place], [address]. tel:[phone] Family History Family Member Type Diagnosis Age At Onset Mother Problem (finding) liver cirrhosis Sister Problem (finding) Hypertension Father Problem (finding) of accident Sister Problem (finding) Cancer - breast [place] Payers Payer name Insurance type Covered green party ID Authoriza tion(s) No Information Social History Type Description Quantity Date Captured Comments Alcohol Use Details No Caffeine Use Details Unknown Tobacco Use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
--- OUTSIDE RECORDS SUMMARY | 2024-09-09 10:09 | XMS_ITS | Encounter Summary ---
Author Organization [facility] Address [address] [place] [address] Care Team Providers Care Claims Attorney Name Role Phone Unavailable Primary Care Provider Unavailabl e Reason for Visit * Reason Onset Date Comments Results 10/05/2016 Encounter Details Date Type Department Care Team ([facility] Contact Info) Description 10/05/2016 Telephone [facility] [address] [place] [address] Leona York APRN-CNP [address] [place] [address] Results Social History Tobacco Use Types Packs/Day Years Used Date Smoking Tobacco: Never Assessed Sex and Gender Information Value Date Recorded Sex Assigned at Not on file Gender Identity Not on file Sexual Orientation Not on file documented as of this encounter Plan of Treatment Not on file documented as of this encounter Visit Diagnoses Not on filedocumented in this encounter
--- OUTSIDE RECORDS SUMMARY | 2024-09-09 10:09 | XMS_ITS | Encounter Summary ---
Author Organization [facility] Address [address] [place] [address]. [place], [place] [id number] [place] [id number] Care Team Providers Care Utility Gelatin Maker Name Role Phone Unavailable Primary Care Provider Unavailabl e Encounter Details Date Type Department Care Team (Late st Contact Info) Description 06/01/2010 Abstract [facility] [place] [address] , Chen Nolasco MD Social History Tobacco Use Types Packs/Day Years [...]
--- OUTSIDE RECORDS SUMMARY | 2024-09-09 13:04 | XMS_ITS | Patient Health Summary ---
Author Organization [facility] General Assembly Address [address] [place] [address] Care Team Providers Care Hot Press Operator Name Role Phone Unavailable Primary Care Provider Unavailabl e Note from [facility],non-owned Affiliates and Associated Physician Practices is amultiple site organization consisting of ambulatory clinics and hospital sitesin [place], [place], [place] and [place]. This disclosure is being madepursuant to the Care Everywhere program and may not contain all information available regarding this patient. Last updated 18.[facility] General Assembly Allergies No known active allergies Medications * [...] Comments Blood Pressure 136/80 10/03/2016 5:55 PM RIVETER Pulse 99 10/03/2016 5:55 PM RIVETER Temperature 38.6 ??C (101.4 ??F) 10/03/2016 5:[address] Respiratory Rate 18 10/03/2016 5:55 PM RIVETER Oxygen Saturation - - Inhaled Oxygen Concentration - - Weight 68 kg (150 lb) 10/03/2016 5:55 PM RIVETER Height 161.3 cm (5' 3.5 ) 10/03/2016 5:55 PM RIVETER Body Mass Index 26.15 10/03/2016 5:55 PM RIVETER Procedures * URINALYSIS AUTO - POINT OF CARE (AMB) STL(Performed 10/03/2016) Performed for Acute cystitis with hematuria * CULTURE URINE(Performed 10/03/2016) Performed for Acute cystitis with hematuria Results * (ABNORMAL) URINALYSIS AUTO - POINT OF CARE (AMB) STL (10/03/2016 6:09 PM RIVETER) Clarity UA POCT clear Color UA POCT yellow Leukocyte UA 125 Negative Nitrite UA POCT neg Negative Urobilinogen UA 0.2 0.1 - 1.0 Protein UA POCT 30 Negative pH UA 6.0 5.0 - 8.0 pH units Blood UA 3+ Negative Specific [place] UA POCT 1.020 1.002 - 1.030 Ketone UA neg Negative Bilirubin UA POCT neg Negative Glucose UA neg Negative Expiration Date 03/23/2018 Lot # [id number] QC Verified Yes Yes URINE / Unknown 10/03/2016 6 :09 PM RIVETER Sudha Huber APRN-INTELLIGENCE AGENT LAB - POINT O F CARE ORDERABLES * (ABNORMAL) CULTURE URINE (10/03/2016 6:08 PM RIVETER) Culture (A) QUEST Comment: ??CULTURE, URINE, ROUTINE ?MICRO NUMBER: ?[id number] ??TEST STATUS: ? FINAL ??SPECIMEN SOURCE: ?? [...] susceptibility to parenteral cefazolin. Test Performed at: [facility] ??[id number] NINI MELENDREZ MD Urine URINE SPECIMEN OBTAINED BY CLEAN CATCH PROCEDURE / Unknown 10/03/2016 6:08 PM RIVETER 10/04/2016 12:18 AM RIVETER Sudha Huber APRN-INTELLIGENCE AGENT LAB - MICROBI OLOGY ORDERABLES [facility] [address] [place] [address]
--- OUTSIDE RECORDS SUMMARY | 2024-09-09 13:04 | XMS_ITS | Clinical Summary ---
Author Organization [facility] [employer] Address [address] [place] [address] Care Team Providers Care Clinical Phlebotomist Name Role Phone Unavailable Primary Care Provider Unavailabl e Source Comments [facility] [employer],non-owned Affiliates and Associated Physician Practices is amultiple site organization consisting of ambulatory clinics and hospital sitesin [place], [place], [place] and [place]. This disclosure is being madepursuant to the Care Everywhere program and may not contain all information available regarding this patient. Last updated 18.[facility] [employer] Allergies No known active allergies Medications * [...] Comments Blood Pressure 136/80 10/03/2016 5:55 PM BOX CAR BRACER Pulse 99 10/03/2016 5:55 PM BOX CAR BRACER Temperature 38.6 ??C (101.4 ??F) 10/03/2016 5:[address] Respiratory Rate 18 10/03/2016 5:55 PM BOX CAR BRACER Oxygen Saturation - - Inhaled Oxygen Concentration - - Weight 68 kg (150 lb) 10/03/2016 5:55 PM BOX CAR BRACER Height 161.3 cm (5' 3.5 ) 10/03/2016 5:55 PM BOX CAR BRACER Body Mass Index 26.15 10/03/2016 5:55 PM BOX CAR BRACER Plan of Treatment Health Maintenance Due Date [...]
--- OUTSIDE RECORDS SUMMARY | 2024-09-09 13:04 | XMS_ITS | Clinical Summary ---
Author Organization [facility] Address [address] [place] [address]. [place], [place] [address] [place] [address] Care Team Providers Care Building Maintenance Mechanic Name Role Phone Unavailable Primary Care Provider [...]
--- OUTSIDE RECORDS SUMMARY | 2024-09-09 13:04 | XMS_ITS | Encounter Summary ---
Author Organization [facility] Address [address] [place] [address] Care Team Providers Care Picker / Packer Name Role Phone Unavailable Primary Care Provider Unavailabl e Reason for Visit * Reason Onset Date Comments Results 10/05/2016 Encounter Details Date Type Department Care Team ([facility] Contact Info) Description 10/05/2016 Telephone [facility] [address] [place] [address] Leona York APRN-CNP [address] [place] [address] Results Social History Tobacco Use [...]
--- OUTSIDE RECORDS SUMMARY | 2024-09-09 13:04 | XMS_ITS | Encounter Summary ---
Author Organization [facility] Address [address] [place] [address] Care Team Providers Care Server Software Engineer Name Role Phone Unavailable Primary Care Provider Unavailabl e Reason for Visit * Reason Comments Pain Urinary 1 month Encounter Details Date Type Department Care Team (Late st Contact Info) Description 10/03/2016 5:40 PM WINDOWS ADMINISTRATOR Office Visit [facility] [address] [place] [phone] Provider, Andrew Exp Name[address] Acute cystitis with [...] Comments Blood Pressure 136/80 10/03/2016 5:55 PM WINDOWS ADMINISTRATOR Pulse 99 10/03/2016 5:55 PM WINDOWS ADMINISTRATOR Temperature 38.6 ??C (101.4 ??F) 10/03/2016 5:[address] Respiratory Rate 18 10/03/2016 5:55 PM WINDOWS ADMINISTRATOR Oxygen Saturation - - Inhaled Oxygen Concentration - - Weight 68 kg (150 lb) 10/03/2016 5:55 PM WINDOWS ADMINISTRATOR Height 161.3 cm (5' 3.5 ) 10/03/2016 5:55 PM WINDOWS ADMINISTRATOR Body Mass Index 26.15 10/03/2016 5:55 PM WINDOWS ADMINISTRATOR documented in this encounter Patient Instructions * Patient Instructions* Sudha Huber APRN-LINING CEMENTER - 10/03/2016 6:11 PM WINDOWS ADMINISTRATOR Images from the original note were not [...] and pressure in your bladder. ?? 2016 [employer]. Information is for End User's use only and may not be sold, redistributed or otherwise used for commercial purposes. All illustrations and images included in CareNotes?? are the copyrighted property of [employer] or [employer] acquired by [employer]. The above information is an geriatric aide only. It is not intended as medical advice for individual conditions or treatments. Talk to your doctor, nurse or pharmacist before following any medical regimen to see if it is safe and effective for you. OWS ADMINISTRATOR documented in this encounter Progress Notes * [...] up with PCP or return to clinic OWS ADMINISTRATOR documented in this encounter Plan of Treatment Not on file documented as of this encounter Procedures Procedure Name Priority Date/Time Associated Diagnosis Comments URINALYSIS AUTO - POINT OF CARE (AMB) STL Routine 10/03/2016 6:09 PM WINDOWS ADMINISTRATOR Acute cystitis with hematuria CULTURE URINE Routine 10/03/2016 6:08 PM WINDOWS ADMINISTRATOR Acute cystitis with hematuria documented in this encounter Results * (ABNORMAL) URINALYSIS AUTO - POINT OF CARE (AMB) STL (10/03/2016 6:09 PM WINDOWS ADMINISTRATOR) Clarity UA POCT clear Color UA POCT yellow Leukocyte UA 125 Negative Nitrite UA POCT neg Negative Urobilinogen UA 0.2 0.1 - 1.0 Protein UA POCT 30 Negative pH UA 6.0 5.0 - 8.0 pH units Blood UA 3+ Negative Specific [place] UA POCT 1.020 1.002 - 1.030 Ketone UA neg Negative Bilirubin UA POCT neg Negative Glucose UA neg Negative Expiration Date 03/23/2018 Lot # [id number] QC Verified Yes Yes URINE / Unknown 10/03/2016 6 :09 PM WINDOWS ADMINISTRATOR Sudha Fan Huber CHARGE AUTHORIZER-LINING CEMENTER LAB - POINT O F CARE ORDERABLES * (ABNORMAL) CULTURE URINE (10/03/2016 6:08 PM WINDOWS ADMINISTRATOR) [facility] Culture (A) QUEST Comment: ??CULTURE, URINE, ROUTINE ?MICRO NUMBER: ?[id number] ??TEST STATUS: ? FINAL ??SPECIMEN SOURCE: ?? [...] susceptibility to parenteral cefazolin. Test Performed at: [facility] [address] [place], [place] ??[id number] NINI MELENDREZ MD Urine URINE SPECIMEN OBTAINED BY CLEAN CATCH PROCEDURE / Unknown 10/03/2016 6:08 PM WINDOWS ADMINISTRATOR 10/04/2016 12:18 AM WINDOWS ADMINISTRATOR Sudha Huber APRN-LINING CEMENTER LAB - MICROBI OLOGY ORDERABLES Performing Organization Address City/State/[facility] Co de Phone Number [facility] [address] [place] [address] documented in this encounter Visit Diagnoses Diagnosis Acute cystitis with hematuria- Primary Acute cystitis Nausea without vomiting documented in this encounter
--- OUTSIDE RECORDS SUMMARY | 2024-09-09 13:04 | XMS_ITS | Encounter Summary ---
Author Organization [facility] Address [address] [place] [address]. [place], [place] [address] [place] [address] Care Team Providers Care Naval Engineer Name Role Phone Unavailable Primary Care Provider Unavailabl e Encounter Details Date Type Department Care Team (Late st Contact Info) Description 06/01/2010 Abstract [facility] [place] [address] , Chen Nolasco MD Social History Tobacco [...]
--- OUTSIDE RECORDS SUMMARY | 2024-09-09 13:04 | XMS_ITS | Referral Summary ---
Author Organization [facility] [employer] Address [address] [place] [address] Care Team Providers Care Gravity Prospecting Operator Helper Name Role Phone Unavailable Primary Care Provider Unavailabl e Source Comments [facility] [employer],non-owned Affiliates and Associated Physician Practices is amultiple site organization consisting of ambulatory clinics and hospital sitesin [place], [place], [place] and [place]. This disclosure is being madepursuant to the Care Everywhere program and may not contain all information available regarding this patient. Last updated 18.[facility] [employer] Allergies No known active allergies Medications * [...] Comments Blood Pressure 136/80 10/03/2016 5:55 PM [employer]NS[employer] Pulse 99 10/03/2016 5:55 PM [employer] Temperature 38.6 ??C (101.4 ??F) 10/03/2016 5:[address] Respiratory Rate 18 10/03/2016 5:55 PM [employer] Oxygen Saturation - - Inhaled Oxygen Concentration - - Weight 68 kg (150 lb) 10/03/2016 5:55 PM [employer] Height 161.3 cm (5' 3.5 ) 10/03/2016 5:55 PM [employer] Body Mass Index 26.15 10/03/2016 5:55 PM [employer] Plan of Treatment Not on file
--- OUTSIDE RECORDS SUMMARY | 2024-09-09 13:04 | XMS_ITS | CONTINUITY OF CARE DOCUMENT ---
Author Name claudia taylor Address Unknown Organization [facility] Address [address] [place] [address] Phone [phone] Care Team Providers Care General Office Associate Name Role Phone Kavin Schumacher MD Unavailable [phone] Kavin Schumacher MD Unavailable [phone] INSURANCE PROVIDERS Payer name Policy type / Coverage type [place] red republican [employer] Medicaid 1 [id number] [facility] [id number]
--- OUTSIDE RECORDS SUMMARY | 2024-09-09 13:04 | XMS_ITS | Continuity of Care Document ---
Author Organization [facility] Address [address] [place] [address] [place] [address] Phone Care Team Providers Care Electrical Apprentice Name Role Phone Maximo Andre MD Unavailable Unavailable Allergies, Adverse Reactions, Alerts Substance Reaction Status Criticality No Known Allergies Active No Inform ation Medications Medication Instructions Dosage Effective Dates (start - stop) Status Comments [place] 10 mg-325 mg tablet take 1 by Oral route 4 times every day as needed 1 - Active avoid driving or operate amchines Valium 10 mg tablet take 1 tablet (10MG) by oral route 3 times every day 10 MG - Active avoid driving or operate machines Ritalin 5 mg tablet take 1 tablet by oral route 2 times every day 5 MG - Active Zantac 150 mg tablet take 1 tablet (150MG) by oral route 2 times every day - Active Topamax 50 mg tablet take 1 tablet by oral route 2 times every day 50 MG - Active omeprazole 20 mg capsule,delayed release take 1 capsule (20MG) by oral route every day before a meal - Active Vistaril 50 mg capsule take 1 capsule [...] Providers Copied on Encounter OFFICE/OUTPA TIENT VISIT, [facility], [address], [place], [address], tel:[phone] [facility] chornic pain (chief complaint)anxi ety1 (chief complaint)GERD 1 (chief complaint)knee pain1 (chief complaint) Chronic pain syndromePain in right kneeGeneralized Anxiety DisorderGERD without esophagitis 6 Thai Marsh. [address], [place], [address]. tel:[phone] Referring Provider: Lyle Lamb [facility] [address], [place], [address]. tel:[phone] OFFICE/OUTPA TIENT VISIT, [facility], [address], [place], [address], [place] tel:[phone] [facility] chronic pain (chief complaint)oste openia1 (chief complaint)indio sst nodule (chief complaint)knee pain (chief complaint)knee pain1 (chief complaint) Oth disrd of bone density and structure, multiple sitesPain in right kneeInconclusiv e mammogramChroni c pain syndrome 0 6 Thai Marsh. [address], [place], [address]. tel:[phone] Referring Provider: Lyle Lamb [facility] [address], [place], [address]. tel:[phone] OFFICE/OUTPA TIENT VISIT, [facility], [address], [place], [address], [place] tel:[phone] [facility] chronic pain (chief complaint)anxi ety1 (chief complaint)ADD (chief complaint)naus ea1 (chief complaint) Chronic pain syndromeGeneral ized Anxiety DisorderNauseaA ttention deficit 6 Thai Marsh. [address], [place], [address]. tel:[phone] Referring Provider: Lyle Lamb [address], [place], [address]. tel:[phone] PREV VISIT, EST, AGE 40-64 [facility], [address], [place], [address], tel:[phone] [facility] PHysical (chief complaint) Encounter for general adult medical exam w abnormal findingsGERD w/ esophagitisChro elizabeth pain syndromeHeadach e May- 6 Thai Marsh. [address], [address], [place], [address]. [phone] Referring Provider: Lyle Lamb [facility] [address], [place], [address]. tel:[phone] OFFICE/OUTPA TIENT VISIT, [facility], [address], [place], [address], [place] tel:[phone] [facility] insomnia1 (chief complaint)anxi ety1 (chief complaint)head ache1 (chief complaint)family services worker elizabeth pain1 (chief complaint)oste openia1 (chief complaint) CervicalgiaOste oporosisInsomni a, unspecifiedChro elizabeth migraine w/o aura, not intractable, w/o status migrainosus January-0 6 Thai Marsh. [address], [facility] A, [place], [facility]. [phone] Referring Provider: Lyle Lamb [address], [place], [address]. tel:[phone] OFFICE/OUTPA TIENT VISIT, [facility], [address], [place], [address], [place] tel:[phone] [facility] abd pain (chief complaint)anxi ety1 (chief complaint)family services worker elizabeth pain (chief complaint)sick (chief complaint) GastroparesisAc curly upper respiratory infection, unspecifiedChro elizabeth pain syndrome Nov- 6 Thai Marsh. [address], [address], [place], [address]. [phone] Referring Provider: Lyle Lamb [address], [place], [address]. tel:[phone] OFFICE/OUTPA TIENT VISIT, [facility], [address], [place], [address], tel:[phone] [facility] anxiety1 (chief complaint)ADD (chief complaint)sinu s (chief complaint)abd pain1 (chief complaint)oste openia (chief complaint) Allergic rhinitisAnxioly tic dependenceAbdom inal painOsteoporosi s 6 Thai Marsh. [address], [place], [facility]. tel:[phone] Referring Provider: Lyle Lamb [address], [place], [facility]. tel:[phone] OFFICE/OUTPA TIENT VISIT, [facility], [address], [place], [facility], tel:[phone] [facility] abd pain1 (chief complaint)inso mnia1 (chief complaint)Anxi ety1 (chief complaint)ADD1 (chief complaint)head ache1 (chief complaint) Abdominal painInsomnia, unspecifiedChro elizabeth migraine w/o aura, not intractable, w/o status migrainosus 6 Thai Marsh. [address], [place], [facility]. tel:[phone] Referring Provider: Lyle Lamb [address], [place], [address]. tel:[phone] OFFICE/OUTPA TIENT VISIT, [facility], [address], [place], [address], tel:[phone] [facility] anxiety1 (chief complaint)ADD1 (chief complaint)Abd pain1 (chief complaint) Generalized abdominal painIBSGERD without esophagitis 5 Thai Marsh. [address], [place], [facility]. tel:[phone] Referring Provider: Lyle [address], [place], [address]. tel:[phone] OFFICE/OUTPA TIENT VISIT, [facility], [address], [place], [address], tel:[phone] [facility] GERD1 (chief complaint)Anxi ety1 (chief complaint)head ache1 (chief complaint) Gastroparalysis Chronic migraine w/o aura, not intractable, w/o status migrainosusAbdo akosua painCandidal esophagitis 5 Thai Marsh. [address], [place], [facility]. tel:[phone] Referring Provider: Maximo Andre, [address], [place], [facility]. tel:[phone] OFFICE/OUTPA TIENT VISIT, [facility], [address], [place], [facility], [place] tel:[phone] [facility] ADD (chief complaint)anxi ety (chief complaint)GERD (chief complaint) Esophageal refluxUnspecifi ed essential hypertensionIns omnia, unspecifiedOthe r disorders of bone and cartilage 5 Thai Marsh. [address], [place], [facility]. tel:[phone] Referring Provider: Maximo Andre, [address], [place], [facility]. tel:[phone] OFFICE/OUTPA TIENT VISIT, [facility], [address], [place], [address], [place] tel:[phone] [facility] HTN (chief complaint)inso mnia (chief complaint)ADD (chief complaint)slee p apnea (chief complaint) InsomniaUnspeci fied sleep apneaUnspecifie d essential hypertension 5 Thai Marsh. [address], [place], [address]. tel:[phone] Referring Provider: Maximo Andre, [address], [place], [facility]. tel:[phone] OFFICE/OUTPA TIENT VISIT, [facility], [address], [place], [address], [place] tel:[phone] [facility] Depression (chief complaint)naue a (chief complaint)ADD (chief complaint) Nausea and vomitingEsophag eal refluxHeadacheS creening mammogram 5 Thai Marsh. [address] [facility] [address], [place], [facility]. tel:[phone] Referring Provider: Lyle Lamb [facility] [address], [place], [facility]. tel:[phone] OFFICE/OUTPA TIENT VISIT, [facility], [address] [place], [facility], tel:[phone] [facility] anxiety (chief complaint)GERD (chief complaint)ches t pain (chief complaint)slee p apnea (chief complaint) Unspecified essential hypertensionUns pecified sleep apneaGERD - Gastro-esophage al reflux diseaseOther chronic pain 5 Thai Hassan [address], [place], [facility]. tel:[phone] Referring [facility]: [facility], [place], [facility]. tel:[phone] OFFICE/OUTPA TIENT VISIT, [facility], [address] [place], [facility], tel:[phone] [facility] chest pain (chief complaint)head ache (chief complaint)inso mnia (chief complaint)anxi ety (chief complaint)seas onal allergy (chief complaint) Chest Pain, UnspecifiedHead acheAllergic rhinitis, cause unspecifiedInso mnia, Other 5 Thai Marsh. [address], [place], [facility]. tel:[phone] Referring Provider: Lyle Lamb [address] [facility] [address], [place], [facility]. tel:[phone] OFFICE/OUTPA TIENT VISIT, [facility], [address] [place], [address], [place] tel:[phone] [facility] chest pain (chief complaint)head ache (chief complaint)inso mnia (chief complaint)anxi ety (chief complaint) Chest Pain, UnspecifiedHead acheInsomnia, OtherDisorder of bone and cartilage, unspecified Dec-0 5 Thai Marsh. [address], [place], [address]. tel:[phone] Referring Provider: Lyle Lamb [facility] [address], [place], [facility]. tel:[phone] OFFICE/OUTPA TIENT VISIT, [facility], [address], [place], [address], tel:[phone] [facility] sleep apnea (chief complaint)anxi ety (chief complaint)ches t pain (chief complaint)inso mnia (chief complaint) Chest Pain, UnspecifiedSlee p ApneaHeadacheIn somnia, Other Nov- 5 Thai Hassan [address], [place], [address]. tel:[phone] Referring Provider: Lyle Lamb [facility] [address], [place], [facility]. tel:[phone] OFFICE/OUTPA TIENT VISIT, [facility], [address], [place], [address], tel:[phone] [facility] sinus (chief complaint)anxi ety (chief complaint)slee p apnea (chief complaint) Other acute sinusitisSleep ApneaSedative, hypnotic or anxiolytic dependence, unspecifiedPers onal history of noncompliance with medical treatment, presenting hazards to health 5 Thai Hassan [address] [facility] [address], [place], [facility]. tel:[phone] Referring Provider: Lyle Lamb [facility] [address], [place], [address]. tel:[phone] OFFICE/OUTPA TIENT VISIT, [facility], [address] [place], [address], [place] tel:[phone] [facility] insomnia (chief complaint)head ache (chief complaint)anxi ety (chief complaint)GERD (chief complaint) Insomnia, OtherHeadacheGE RDDepression 4 Thai Hassan [address], [address], [place], [address]. tel:[phone] Referring Provider: Lyle Lamb [address], [place], [facility]. tel:[phone] OFFICE/OUTPA TIENT VISIT, [facility], [address], [place], [facility], tel:[phone] [facility] headache (chief complaint)slee p apnea (chief complaint)anxi ety (chief complaint)inso mnia (chief complaint) HeadacheSleep ApneaDisorder of bone and cartilage, unspecifiedInso mnia, Other 4 Thai Marsh. [address], [place], [facility]. [phone] Referring Provider: Lyle Lamb [address], [place], [facility]. tel:[phone] OFFICE/OUTPA TIENT VISIT, [facility], [address], [place], [facility], tel:[phone] [facility] headache (chief complaint)anxi ety (chief complaint)naus ea (chief complaint) HeadacheNausea aloneSleep Apnea 4 Thai Marsh. [address], [place], [facility]. tel:[phone] Referring Provider: Lyle Lamb [address], [place], [facility]. tel:[phone] OFFICE/OUTPA TIENT VISIT, [facility], [address], [place], [facility], tel:[phone] [facility] insomnia (chief complaint)slee p apnea (chief complaint)anxi ety (chief complaint)GERD (chief complaint) Insomnia, OtherGERDSleep Apnea 4 Thai Marsh. [address], [place], [facility]. [phone] Referring Provider: Lyle Lamb [address], [place], [facility]. tel:[phone] OFFICE/OUTPA TIENT VISIT, [facility], [address], [place], [address], [place] tel:[phone] [facility] GERD (chief complaint)knee pain (chief complaint)slee p apena (chief complaint)anxi ety (chief complaint)inso mnia (chief complaint) GERDPain in joint involving lower legSleep ApneaInsomnia, Other 4 Thai Marsh. [address], [address], [place], [address]. tel:[phone] Referring Provider: aMximo Andre, [address], [place], [address]. tel:[phone] OFFICE/OUTPA TIENT VISIT, [facility], [address], [place], [address], [place] tel:[phone] [facility] knee pain (chief complaint)slee p apnea (chief complaint)anxi ety (chief complaint) Sleep ApneaPain in joint involving lower legDisorder of bone and cartilage, unspecified 4 Thai Marsh. [address], [address], [place], [address]. tel:[phone] Referring Provider: Lyle Lamb [address], [place], [address]. tel:[phone] OFFICE/OUTPA TIENT VISIT, [facility], [address], [place], [address], [place] tel:[phone] [facility] GERD (chief complaint)righ t ear pain (chief complaint)anxi ety (chief complaint) GERDOtalgia, unspecified 4 Thai Marsh. [address], [place], [address]. tel:[phone] Referring Provider: Lyle Lamb [address], [place], [address]. tel:[phone] OFFICE/OUTPA TIENT VISIT, [facility], [address], [place], [address], [place] tel:[phone] [facility] osteopenia (chief complaint)head ache (chief complaint)anxi ety (chief complaint) Disorder of bone and cartilage, unspecifiedHead acheHypertensio n, Unspecified 4 Thai Marsh. [address], [place], [facility]. tel:[phone] Referring Provider: Lyle Lamb [facility] [address], [place], [facility]. tel:[phone] OFFICE/OUTPA TIENT VISIT, [facility], [address], [place], [facility], tel:[phone] [facility] GERD (chief complaint)anxi ety (chief complaint)family services worker elizabeth pain (chief complaint) GERDCervicalgia 4 Thai Marsh. [address], [place], [facility]. [phone] Referring Provider: Lyle Lamb [facility] [place], [facility]. tel:[phone] OFFICE/OUTPA TIENT VISIT, [facility], [address], [place], [address], [place] tel:[phone] [facility] abdominal pain (chief complaint)anxi ety (chief complaint)oste opnia (chief complaint) Dietary surveillance and counselingAbdom inal PainDisorder of bone and cartilage, unspecifiedGERD 4 Thai Marsh. [address], [place], [facility]. tel:[phone] Referring Provider: Lyle Lamb [address], [place], [facility]. tel:[phone] OFFICE/OUTPA TIENT VISIT, [facility], [address], [place], [address], [place] tel:[phone] [facility] itching (chief complaint)skin infection (chief complaint)family services worker elizabeth pain (chief complaint)anxi ety (chief complaint)abdo akosua pain (chief complaint) Dietary surveillance and counselingPain in joint involving lower legCellulitis and abscess of other specified sitesAbdominal PainUnspecified pruritic disorder 4 Thai Marsh. [address], [place], [address]. tel:[phone] Referring Provider: Lyle Lamb [address], [place], [address]. tel:[phone] OFFICE/OUTPA TIENT VISIT, [facility], [address], [place], [address], tel:[phone] [facility] abdominal pain (chief complaint)anxi ety (chief complaint)hand infection (chief complaint)family services worker elizabeth pain (chief complaint)itch ing (chief complaint) Dietary surveillance and counselingAbdom inal PainCellulitis and abscess of other specified sitesCHRONIC PAIN NEC 4 Thai Marsh. [address], [place], [facility]. tel:[phone] Referring Provider: Lyle Lamb [facility] [address], [place], [facility]. tel:[phone] OFFICE/OUTPA TIENT VISIT, [facility], [address], [place], [address], [place] tel:[phone] [facility] abdominal pain (chief complaint)anxi ety (chief complaint)itch ing (chief complaint)head ache (chief complaint) Dietary surveillance and counselingAbdom inal PainUnspecified pruritic disorderNausea aloneHeadache 3 Thai Hassan [address], [place], [address]. tel:[phone] Referring Provider: Lyle Lamb [address], [place], [address]. tel:[phone] OFFICE/OUTPA TIENT VISIT, [facility], [address], [place], [address], [place] tel:[phone] [facility] abdominal pain (chief complaint)oste openia (chief complaint)anxi ety (chief complaint)scab ie (chief complaint) Dietary surveillance and counselingAbdom inal PainDisorder of bone and cartilage, unspecifiedScab ies 3 Thai Hassan [address], [place], [address]. tel:[phone] [facility], [address], [place], [address], [place] tel:[phone] [facility] CHRONIC PAIN NEC Sep-3 0-201 3 Thai Marsh. [address], [place], [address]. tel:[phone] OFFICE/OUTPA TIENT VISIT, [facility], [address], [place], [address], [place] tel:[phone] [facility] chornic pain (chief complaint)abdo akosua pain (chief complaint)oste oporosis (chief complaint)anxi ety (chief complaint) Dietary surveillance and counselingPain in joint involving lower legAbdominal PainDisorder of bone and cartilage, unspecified Sep-2 6 3 [address]. [address], [place], [address]. tel:[phone] Referring Provider: Maximo Andre, [address], [place], [facility]. tel:[phone] OFFICE/OUTPA TIENT VISIT, [facility], [address], [place], [address], [place] tel:[phone] [facility] chronic pain (chief complaint)abdo akosua pain (chief complaint)oste oporosis (chief complaint)skin infection (chief complaint) Dietary surveillance and counselingCHRON IC PAIN NECAbdominal PainDisorder of bone and cartilage, unspecifiedCell ulitis and abscess of other specified sites Apr- 3 Thai Marsh. [address], [place], [address]. tel:[phone] Referring Provider: Maximo Andre, [address], [place], [address]. tel:[phone] OFFICE/OUTPA TIENT VISIT, [facility], [address], [place], [address], [place] tel:[phone] [facility] chronic pain (chief complaint)anxi ety (chief complaint)Naus ea (chief complaint) Pain in joint involving lower legDisorder of bone and cartilage, unspecifiedNaus ea aloneAbdominal Pain 3 Thai Marsh. [address], [place], [address]. tel:[phone] Referring Provider: Lyle Lamb [address], [place], [address]. tel:[phone] OFFICE/OUTPA TIENT VISIT, [facility], [address], [place], [address], tel:[phone] [facility] chronic pain (chief complaint)anxi ety (chief complaint)head ache (chief complaint)oste openia (chief complaint) Dietary surveillance and counselingHeada cheCHRONIC PAIN NECDisorder of bone and cartilage, unspecified 3 Thai Marsh. [address], [place], [address]. tel:[phone] Referring Provider: Lyle Lamb [address], [place], [address]. tel:[phone] OFFICE/OUTPA TIENT VISIT, [facility], [address], [place], [address], [place] tel:[phone] [facility] headache (chief complaint)family services worker elizabeth pain (chief complaint)anxi ety (chief complaint) CHRONIC PAIN NECHeadacheNaus ea alone 3 Thai Marsh. [address], [place], [address]. tel:[phone] Referring Provider: Lyle Lamb [address], [place], [address]. tel:[phone] OFFICE/OUTPA TIENT VISIT, [facility], [address], [place], [address], [place] tel:[phone] [facility] chornic pain (chief complaint)anxi ety (chief complaint) Dietary surveillance and counselingHeada cheCHRONIC PAIN NECNausea alone 3 Thai Marsh. [address], [place], [address]. tel:[phone] Referring Provider: Lyle Lamb [address], [place], [address]. tel:[phone] OFFICE/OUTPA TIENT VISIT, [facility], [address], [place], [address], [place] tel:[phone] [facility] Chronic pain (chief complaint)Head ache (chief complaint) HeadacheCHRONIC PAIN NEC Nov-2 3 Thai Marsh. [address], [place], [address]. [phone] Referring Provider: Maximo Andre, [address], [place], [address]. tel:[phone] OFFICE/OUTPA TIENT VISIT, [facility], [address], [place], [address], [place] tel:[phone] [facility] headache (chief complaint)nail fungus (chief complaint)family services worker elizabeth pain (chief complaint) Dietary surveillance and counselingHeada cheCHRONIC PAIN NECDermatophyto sis of nail Nov-0 3 Thai Marsh. [address], [place], [address]. [phone] Referring Provider: Lyle Lamb [address], [place], [address]. tel:[phone] OFFICE/OUTPA TIENT VISIT, [facility], [address], [place], [address], [place] tel:[phone] [facility] Knee pain (chief complaint)Head ache (chief complaint)family services worker elizabeth pain (chief complaint)anxi ety (chief complaint)ear pain (chief complaint) Dietary surveillance and counselingCHRON IC PAIN NECPain in joint involving lower legHeadache [address], [address], [place], [address]. [phone] Referring Provider: L[address], [place], [address]. tel:[phone] OFFICE/OUTPA TIENT VISIT, [facility], [address], [place], [address], tel:[phone] [facility] chronic pain (chief complaint)nail discoloration (chief complaint)knee pain (chief complaint) Dietary surveillance and counselingDerma tophytosis of nailCHRONIC PAIN NECPain in joint involving lower leg 3 [address], [address], [place], [address]. tel:[phone] Referring Provider: Lyle [address], [place], [address]. tel:[phone] OFFICE/OUTPA TIENT VISIT, [facility], [address], [place], [address], [place] tel:[phone] [facility] chronic pain (chief complaint)IBS (chief complaint)toen ail dark (chief complaint) Dietary surveillance and counselingCHRON IC PAIN NECDermatophyto sis of nail [address], [address], [place], [address]. tel:[phone] Referring Provider: Lyle [address], [place], [address]. tel:[phone] OFFICE/OUTPA TIENT VISIT, [facility], [address], [place], [address], [place] tel:[phone] [facility] right shoulder pain (chief complaint)toba account officer cessation (chief complaint) Dietary surveillance and counselingCHRON IC PAIN NECTobacco AbuseHeadache [address], [address], [place], [address]. tel:[phone] Referring Provider: [address], [place], [address]. tel:[phone] OFFICE/OUTPA TIENT VISIT, [facility], [address], [place], [address], [place] tel:[phone] [facility] shoudler pain (chief complaint)sinu s (chief complaint) Dietary surveillance and counselingPain in joint involving shoulder regionOtalgia, unspecifiedIrri table ColonOther chronic sinusitisTobacc o Abuse [address], [place], [address]. tel:[phone] Referring Provider: Maximo Andre, [address], [place], [address]. tel:[phone] Family History Family Member Type Diagnosis Age At Onset Mother Problem (finding) liver cirrhosis Sister Problem (finding) Hypertension Father Problem (finding) of accident Sister Problem (finding) Cancer - breast [place] Payers Payer name Insurance type Covered constitution party ID Authoriza tion(s) No Information Social [...] pain Pt still needs pain meds from md anxiety1 Pt has chornic a nxiety and [...] just seen a new GI specialist in [facility]. Pt has chronic nausea, vomiting. Pt supposes to have another HIDA scan and gastric empty study soon anxiety1 Pt has chronic a nxiety and depression. Pt takes paxil and valium and doing ok. Pt denies nay suciidasl or homicdial thought chronic pain Pt has chronic n ness and back pain. Her pain managment moved to [place] and she is out of pain meds. [...] misoprostol. Pt was referred to GI at [facility]. Pt still has not done ct yet. [...] in the process of being referred to [facility]. NO acute abdomen pain insomnia1 Pt has [...] Mental Status Date Cognitive Assessment Orientation - [place] ed to time, place, person, situation.
--- OUTSIDE RECORDS SUMMARY | 2024-09-09 13:04 | XMS_ITS | Continuity of Care Document ---
Author Organization [facility] Address [address] [place] [address] Phone Care Team Providers Care Assembler [employer]al [employer] Name Role Phone Fuentes OD, Aristeo Unavailable Unavailable Advance Directives Directive Yes / No Effective Date File Name No Information Encounters Encounter Description Practice Location Reason(s) For Visit Diagnoses Date Provider Providers Copied on Encounter [facility], [address], [place], [place], [id number], [place] tel:[phone] [facility] [place] No Information Nov-0 4-200 5 Fuentes OD Aristeo. [address] [facility] [address] , [address], [place], [address], [place]. tel:[phone] Family History Family Member Type Diagnosis Age At Onset No Information Payers Payer name Insurance type Covered libertarian ID Authoriza tion(s) Medicare [facility] [id number] Medicaid [facility] [id number] Social History Type Description Quantity Date Captured [...]
== END 2024-09-05 18:42 | disposition home or self-care (01) ==
LOC: ANHED 18:38
PROVIDERS: Emergency Provider Physician Assistant
DX: S05.01XA Injury of conjunctiva and corneal abrasion without foreign body, right eye, initial encounter (principal); X58.XXXA Exposure to other specified factors, initial encounter
CPT/HCPCS: 99283; A9270